=== PATIENT | male | born 1995 | race Caucasian/White ===

== ENCOUNTER 2019-04-03 19:13 | Observation (INO) ==
[2019-04-03] MEDS ORDERED: Pantoprazole 40 MG VIAL IVP ONE (19:44)
[2019-04-03] MEDS ORDERED: GI Cocktail 40 ML EACH PO ONE (19:44)
[2019-04-03] MEDS ORDERED: Ondansetron 4 MG/2 ML VIAL IVP ONE (19:44)
[2019-04-03] MEDS ORDERED: Isovue-370 500 ML BOTTLE IVP ONE (19:45)
[2019-04-03] MEDS ORDERED: Ketorolac 15 MG/ML VIAL IVP ONE (19:45)
--- NOTE | 2019-04-03 19:50 | Emergency Department Note ---
Disposition Clinical Impression: Acute appendicitis Qualifiers: Acute appendicitis type: unspecified acute appendicitis type Qualified Code(s): K35.80 - Unspecified acute appendicitis Disposition: Admitted As Inpatient Referrals: [facility] [Outside] Forms: ED Satisfaction Letter, Work/School Release Time of Disposition: 22:11 Abdominal Pain HPI - General Chief Complaint: ED Abdominal Pain Stated Complaint: Stomach Pain Time Seen by Provider: 04/03/19 19:27 Source: patient Mode of arrival: ambulatory Limitations: no limitations Nursing Notes Reviewed: Yes Vital Signs Reviewed: Yes - History of Present Illness HPI Narrative: Mr. Sequeira is a 23 yo M with no past medical history presented the emergency department with epigastric pain radiating to the RUQ and RLQ. He reports he has had intermittent pain for several months, but has had constant pain since this afternoon while he was bending down at work. Pain is worse with eating. He also has nausea and vomiting that worsens with eating. Associated chills, but no known fevers. He denies acid reflux, diarrhea, constipation, hematochezia, melena, dysuria, hematuria, or rashes. He has had 2 ED visits in the past for this pain, told that he will have constipation and gastroenteritis. He takes no medications. No prior abdominal surgeries. Pain Scale: 9 - Related Data Previous Rx's Medication Instructions Recorded Ondansetron ODT [Zofran ODT] 4 mg SL Q4HR PRN #10 tab.rapdis 09/02/18 Ranitidine Oral Soln [Zantac] 150 mg PO DAILY #15 oral.syg 09/02/18 Allergies Allergy/AdvReac Type Severity Reaction Status Date / Time No Known Allergies Allergy Verified 04/03/19 19:14 Review of Systems: Admits to chills, abdominal pain, nausea, and vomiting. Denies fevers, headache, vision changes, chest pain, dyspnea, diarrhea, constipation, hematochezia, melena, dysuria, hematuria, rashes, or edema. Abdominal Pain PMH - Past Medical History Medical history: Reports: no medical history Male Surgical History: Reports: no surgical history Psychiatric history: Reports: no psych history - Social History Smoking status: Current every day smoker Alcohol use: Reports: none Drug use: Reports: none Physical Exam GEN: No acute distress, A&O3 HEAD: Atraumatic, normocephalic EYES: Pupils symmetric, sclera white, conjunctiva pink HEART: RRR, normal S1 and S2, no murmurs LUNGS: Clear to auscultation bilaterally, no wheezes, rhonchi, or crackles ABD: Soft, mild tenderness in epigastric, RUQ, and RLQ regions, nondistended, + guarding, no rigidity or rebound EXT: No edema noted, pulses 2/4, no rashes NEURO: No focal deficits, cooperative with exam - General Limitations: no limitations General appearance: alert Course Vital Signs Temperature 97.9 F 04/03/19 19:15 Pulse Rate 76 04/03/19 19:15 Respiratory Rate 15 04/03/19 19:15 Blood Pressure 138/83 04/03/19 19:15 O2 Sat by Pulse Oximetry 98 04/03/19 19:15 Temperature 97.9 F 04/03/19 19:15 Pulse Rate 67 04/03/19 21:01 Respiratory Rate 14 04/03/19 21:01 Blood Pressure 113/75 04/03/19 21:01 O2 Sat by Pulse Oximetry 99 04/03/19 21:01 Oxygen Delivery Oxygen Delivery Room Air Abdominal Pain - MDM Narrative Medical decision making narrative: Non-toxic, afebrile, well appearing 23 yo M here with acute on chronic abdominal pain. Labs shows mild leukocytosis of 12.6. UA with microscopic RBCs. CMP and lipase unremarkable. CT abdomen and pelvis shows periappendiceal inflammation, appendicolith, and early signs of acute appendicitis. Will give patient a dose of Zosyn here in the ED. Patient symptoms are improved with Toradol and Zofran. The patient last ate around 1700. Discussed the case with the on-call surgeon, Dr. Tripathi, who recommends admission to the hospital to the surgical service and plan for surgery in the morning. - Lab Data Lab results reviewed: Yes I reviewed the patient's lab results. Result diagrams: 04/03/19 20:15 04/03/19 20:15 Lab Results 04/03/19 04/03/19 04/03/19 Range/Units 20:03 20:15 20:15 WBC 12.6 H (4.3-11.1) K/mcL RBC 5.26 (4.19-5.50) M/mcL Hgb 15.4 (12.9-16.9) g/dL Hct 44.7 (37.5-50.1) % MCV 85.0 (83.0-100.0) fL MCH 29.3 (28.0-33.3) pg MCHC 34.5 (31.6-35.5) g/dL RDW 12.4 (11.5-14.5) % Plt Count 206 (140-400) K/mcL MPV 10.0 (9.4-12.4) fL Immature Gran % 0.5 (0-4) % Seg Neutrophils % 76.0 % Lymphocytes % 17.6 % Monocytes % 5.0 % Eosinophils % 0.5 % Basophils % 0.4 % Neutrophils # 9.6 H (1.6-8.9) K/mcL Lymphocytes # 2.2 (0.6-4.6) K/mcL Monocytes # 0.6 (0.0-1.3) K/mcL Eosinophils # 0.1 (0.0-0.6) K/mcL Basophils # 0.1 (0.0-0.2) K/mcL Sodium 140 (136-145) mEq/L Potassium 3.6 (3.5-5.1) mEq/L Chloride 107 (98-107) mEq/L Carbon Dioxide 26 (23-29) mEq/L BUN 11 (6-20) mg/dL Creatinine 0.78 (0.70-1.30) mg/dL Est GFR ( Amer) > 60 (> 60) Est GFR (Non-Af Amer) > 60 (> 60) BUN/Creatinine Ratio 14 (6-26) Glucose 92 (70-105) mg/dL Calculated Osmolality 289 (280-300) Calcium 9.4 (8.6-10.3) mg/dL Total Bilirubin 0.3 (0.3-1.0) mg/dL Direct Bilirubin 0.1 (0.0-0.2) mg/dL Indirect Bilirubin 0.2 (0.0-1.2) mg/dL AST 13 (13-39) Units/L ALT 9 (7-52) Units/L Alkaline Phosphatase 61 (34-104) Units/L Serum Total Protein 7.1 (6.4-8.9) g/dL Albumin 4.8 (3.5-5.7) g/dL Globulin 2.3 L (2.4-3.5) g/dL Albumin/Globulin Ratio 2.1 (1.1-2.2) Amylase 40 (29-103) Units/L Lipase 6 L (11-82) Units/L Urine Color Yellow (Yellow) Urine Clarity Turbid A (Clear) Urine pH 8.0 (5.0-8.0) pH Units Ur Specific [place] 1.022 (1.010-1.025) Urine Protein Negative (Neg-Trace) mg/dL Urine Glucose (UA) Normal (Normal) mg/dL Urine Ketones Negative (Negative) mg/dL Urine Blood Negative (Negative) Urine Nitrite Negative (Negative) Urine Bilirubin Negative (Negative) Urine Urobilinogen Normal (Normal) mg/dL Ur Leukocyte Esterase Negative (Negative) Urine Microscopic RBC 3-5 H (0-3) per hpf Urine Microscopic WBC 0-3 (0-3) per hpf Ur Squamous Epith Cells Few (None-Few) per lpf Urine Bacteria None Seen (None-Few) per hpf Hyaline Casts None Seen (None-Few) per lpf Ur Culture Indicated? NO (NO) - Radiology Data Radiology results reviewed: Yes I reviewed the patient's radiology results. Attestation Statement - Attestation Attestation: Yury Mariee D.O., examined this patient and my medical decision-making was reviewed with the Resident Physician. I agree with the documented findings, disposition and treatment plan as described except to the extent set forth below.
[2019-04-03 20:15] LABS: Bilirubin,Urine Negative (Negative); Blood,Urine Negative (Negative); Clarity,Urine Turbid (Clear); Color,Urine Yellow (Yellow); Glucose,Urine (UA) Normal (Normal); Ketones,Urine Negative (Negative); Leukocyte Esterase,Urine Negative (Negative); Nitrite,Urine Negative (Negative); Protein,Urine Negative (Neg-Trace); Specific Gravity,Urine 1.022 (1.010-1.025); Urobilinogen,Urine Normal (Normal)
[2019-04-03 20:16] LABS: Bacteria,Urine None Seen per hpf (None-Few); Hyaline Casts,Urine None Seen per lpf (None-Few); Squamous Epithelial Cell,Urine Few per lpf (None-Few); WBC,Urine 0-3 per hpf (0-3)
[2019-04-03 20:32] LABS: Basophils # 0.1 K/mcL (0.0-0.2); Basophils % 0.4 %; Eosinophils # 0.1 K/mcL (0.0-0.6); Eosinophils % 0.5 %; Hematocrit 44.7 % (37.5-50.1); Hemoglobin 15.4 g/dL (12.9-16.9); Immature Granulocytes % 0.5 % (0-4); Lymphocytes # 2.2 K/mcL (0.6-4.6); Lymphocytes % 17.6 %; Mean Corpuscular HGB Conc 34.5 g/dL (31.6-35.5); Mean Corpuscular Hemoglobin 29.3 pg (28.0-33.3); Monocytes # 0.6 K/mcL (0.0-1.3); Neutrophils # 9.6 K/mcL (1.6-8.9); Platelet Count 206 K/mcL (140-400); Red Blood Count 5.26 M/mcL (4.19-5.50); Red Cell Distribution Width 12.4 % (11.5-14.5); White Blood Count 12.6 K/mcL (4.3-11.1)
--- NOTE | 2019-04-03 20:34 | Emergency Department Note ---
Disposition Clinical Impression: Acute appendicitis Qualifiers: Acute appendicitis type: unspecified acute appendicitis type Qualified Code(s): K35.80 - Unspecified acute appendicitis Disposition: Admitted As Inpatient Condition: Good Referrals: [facility] [Outside] Forms: ED Satisfaction Letter, Work/School Release Time of Disposition: 22:05 General Adult HPI - General Chief complaint: ED Abdominal Pain Stated complaint: Stomach Pain Time Seen by Provider: 04/03/19 19:27 Source: patient Mode of arrival: ambulatory Limitations: no limitations - History of Present Illness Pain Scale: 9 - Related Data Previous Rx's Medication Instructions Recorded Ondansetron ODT [Zofran ODT] 4 mg SL Q4HR PRN #10 tab.rapdis 09/02/18 Ranitidine Oral Soln [Zantac] 150 mg PO DAILY #15 oral.syg 09/02/18 Allergies Allergy/AdvReac Type Severity Reaction Status Date / Time No Known Allergies Allergy Verified 04/03/19 19:14 Past Medical History - Past Medical History Medical history: Reports: no medical history Psychiatric history: Reports: no psych history - Social History Smoking Status: Current every day smoker Alcohol use: Reports: none Drug use: Reports: none Physical Exam - General Limitations: no limitations General appearance: alert Course Vital Signs Temperature 97.9 F 04/03/19 19:15 Pulse Rate 76 04/03/19 19:15 Respiratory Rate 15 04/03/19 19:15 Blood Pressure 138/83 04/03/19 19:15 O2 Sat by Pulse Oximetry 98 04/03/19 19:15 Temperature 97.9 F 04/03/19 19:15 Pulse Rate 67 04/03/19 21:01 Respiratory Rate 14 04/03/19 21:01 Blood Pressure 113/75 04/03/19 21:01 O2 Sat by Pulse Oximetry 99 04/03/19 21:01 Oxygen Delivery Oxygen Delivery Room Air Medical Decision Making - Lab Data Result diagrams: 04/03/19 20:15 04/03/19 20:15 Lab Results 04/03/19 04/03/19 04/03/19 Range/Units 20:03 20:15 20:15 WBC 12.6 H (4.3-11.1) K/mcL RBC 5.26 (4.19-5.50) M/mcL Hgb 15.4 (12.9-16.9) g/dL Hct 44.7 (37.5-50.1) % MCV 85.0 (83.0-100.0) fL MCH 29.3 (28.0-33.3) pg MCHC 34.5 (31.6-35.5) g/dL RDW 12.4 (11.5-14.5) % Plt Count 206 (140-400) K/mcL MPV 10.0 (9.4-12.4) fL Immature Gran % 0.5 (0-4) % Seg Neutrophils % 76.0 % Lymphocytes % 17.6 % Monocytes % 5.0 % Eosinophils % 0.5 % Basophils % 0.4 % Neutrophils # 9.6 H (1.6-8.9) K/mcL Lymphocytes # 2.2 (0.6-4.6) K/mcL Monocytes # 0.6 (0.0-1.3) K/mcL Eosinophils # 0.1 (0.0-0.6) K/mcL Basophils # 0.1 (0.0-0.2) K/mcL Sodium 140 (136-145) mEq/L Potassium 3.6 (3.5-5.1) mEq/L Chloride 107 (98-107) mEq/L Carbon Dioxide 26 (23-29) mEq/L BUN 11 (6-20) mg/dL Creatinine 0.78 (0.70-1.30) mg/dL Est GFR ( Amer) > 60 (> 60) Est GFR (Non-Af Amer) > 60 (> 60) BUN/Creatinine Ratio 14 (6-26) Glucose 92 (70-105) mg/dL Calculated Osmolality 289 (280-300) Calcium 9.4 (8.6-10.3) mg/dL Total Bilirubin 0.3 (0.3-1.0) mg/dL Direct Bilirubin 0.1 (0.0-0.2) mg/dL Indirect Bilirubin 0.2 (0.0-1.2) mg/dL AST 13 (13-39) Units/L ALT 9 (7-52) Units/L Alkaline Phosphatase 61 (34-104) Units/L Serum Total Protein 7.1 (6.4-8.9) g/dL Albumin 4.8 (3.5-5.7) g/dL Globulin 2.3 L (2.4-3.5) g/dL Albumin/Globulin Ratio 2.1 (1.1-2.2) Amylase 40 (29-103) Units/L Lipase 6 L (11-82) Units/L Urine Color Yellow (Yellow) Urine Clarity Turbid A (Clear) Urine pH 8.0 (5.0-8.0) pH Units Ur Specific [place] 1.022 (1.010-1.025) Urine Protein Negative (Neg-Trace) mg/dL Urine Glucose (UA) Normal (Normal) mg/dL Urine Ketones Negative (Negative) mg/dL Urine Blood Negative (Negative) Urine Nitrite Negative (Negative) Urine Bilirubin Negative (Negative) Urine Urobilinogen Normal (Normal) mg/dL Ur Leukocyte Esterase Negative (Negative) Urine Microscopic RBC 3-5 H (0-3) per hpf Urine Microscopic WBC 0-3 (0-3) per hpf Ur Squamous Epith Cells Few (None-Few) per lpf Urine Bacteria None Seen (None-Few) per hpf Hyaline Casts None Seen (None-Few) per lpf Ur Culture Indicated? NO (NO) Attestation Statement - Attestation Attestation: Yury Mariee D.O., examined this patient and my medical decision-making was reviewed with the Resident Physician. I agree with the documented findings, disposition and treatment plan as described except to the extent set forth below. This is a 23-year-old male with a history of chronic abdominal pain presenting with abdominal pain. States pain began today. Points to his epigastric and right upper quadrant area. It is associated with eating usually. He has been seen numerous times for this before and says he has been told different etiologies of his pain. Reports feeling nauseated. No change in bowel habits. No prior abdominal surgical history. No other complaints. General: Alert, no acute distress HENT: Normocephalic, Atraumatic Neck: No JVD Cardiovascular: Regular rate and rhythm. No appreciable murmurs Respiratory: Lungs CTAB. No wheezing/rhonchi Abdominal: Soft, mild tenderness in the epigastric, right upper quadrant and right lower quadrant. No peritoneal features. Extremities: No peripheral edema Neuro: Alert, Mentating appropriately, No focal deficits Skin: Warm, Dry Plan: CT, labs, disposition pending. CT with evidence of acute appendicitis with appendicolith without abscess or perforation. He does have a leukocytosis of 12.6 with a left shift. Patient was given Zosyn. Case discussed with the on-call general surgeon, Dr. Tripathi who accepts the patient to his service.
[2019-04-03 20:55] LABS: Alanine Aminotransferase 9 Units/L (7-52); Albumin 4.8 g/dL (3.5-5.7); Albumin/Globulin Ratio 2.1 (1.1-2.2); Alkaline Phosphatase 61 Units/L (34-104); Amylase 40 Units/L (29-103); Aspartate Amino Transferase 13 Units/L (13-39); BUN/Creatinine Ratio 14 (6-26); Bilirubin,Direct 0.1 mg/dL (0.0-0.2); Bilirubin,Indirect 0.2 mg/dL (0.0-1.2); Bilirubin,Total 0.3 mg/dL (0.3-1.0); Blood Urea Nitrogen 11 mg/dL (6-20); Calcium 9.4 mg/dL (8.6-10.3); Carbon Dioxide 26 mEq/L (23-29); Chloride 107 mEq/L (98-107); Globulin 2.3 g/dL (2.4-3.5); Glucose 92 mg/dL (70-105); Lipase 6 Units/L (11-82); Osmolality,Calculated 289 (280-300); Potassium 3.6 mEq/L (3.5-5.1); Sodium 140 mEq/L (136-145); Total Protein 7.1 g/dL (6.4-8.9); eGFR For African Americans > 60 (> 60); eGFR For Non-African Americans > 60 (> 60)
[2019-04-03] MEDS ORDERED: Piperacillin/Tazobactam 3.375 GM in Water for inj. (sterile) 20 ML IVP ONE (22:01)
[2019-04-03] MEDS ORDERED: 0.9 % Sodium Chloride 1,000 ML IVC ONE (22:02)
[2019-04-04] MEDS: cefOXitin 2,000 MG in 0.9 % Sodium Chloride Mini Bag 100 ML IVPB SCH ×2 (00:15→07:51)
--- NOTE | 2019-04-04 00:24 | Acute Care Surgery H&P ---
Date of Encounter: 04/04/19 Time of Encounter: 00:05 Assessment and Plan (1) Acute appendicitis Current Visit: Yes Status: Acute The assessment and plan as outlined above was discussed with the patient and/or family members who expressed understanding and agreement. All questions were answered. We will plan on initial IV antibiotic therapy and IV hydration. He will be kept nothing by mouth. We will plan laparoscopic appendectomy tomorrow. Qualifiers: Acute appendicitis type: with localized peritonitis Appendicitis gangrene presence: unspecified whether gangrene present Appendicitis perforation presence: unspecified whether perforation present Appendicitis abscess presence: unspecified whether abscess present Qualified Code(s): K35.30 - Acute appendicitis with localized peritonitis, without perforation or gangrene History of Present Illness Chief complaint: Abdominal pain HPI: Mr. Sequeira is a 23 year old male That developed abdominal pain about 2:00 this afternoon. The pain was initially central and generalized. Throughout the day the pain became lower in the abdomen. The pain is predominantly right mid abdomen without localization of the right lower quadrant. He denies shakes chills or fever. He denies nausea or vomiting. He sought evaluation in the emergency department. CAT scan demonstrated early acute appendicitis. He does have leukocytosis. He now presents for treatment of early acute appendicitis. Unfortunately, the patient ate dinner at 5:00 this evening. We will keep him nothing by mouth after midnight and plan on performing his appendectomy tomorrow. Past Med Surg Social Fam HX - Past Medical History Medical history: no medical history Psychiatric history: no psych history - Social History Smoking Status: Current every day smoker Alcohol use: none Drug use: none - Family History Maternal Grandfather Living Status: Still Living Hx Family Cancer: Yes Medications and Allergies No Known Home Drugs 04/03/19 [History] Allergy/AdvReac Type Severity Reaction Status Date / Time No Known Allergies Allergy Verified 04/03/19 19:14 Review of Systems All systems PM: The remainder of the systems were reviewed and are negative General Surgery Exam Initial Vital Signs Temp Pulse Resp BP Pulse Ox 97.9 F 76 15 138/83 98 04/03/19 19:15 04/03/19 19:15 04/03/19 19:15 04/03/19 19:15 04/03/19 19:15 - General physical appearance well developed, well nourished, moderate pain - Respiratory normal expansion, normal respiratory effort, clear to percussion, clear to auscultation - Cardiovascular Cardiovascular exam: Present: RRR, no murmurs/rubs/gallops - Abdomen Abdominal Tenderness: Present: RLQ (And right mid abdomen pain to deep palpation no guarding no rebound) - Integumentary Integumentary general surgery: Present: warm and dry, no abnormal pigmentation - Neurologic Present: CN 2-12 grossly intact, normal coordination, normal sensation - Psychiatric Psychiatric general surgery: Present: appropriate, oriented to person, oriented to place, oriented to time, speech is normal, memory intact Results - Labs 04/03/19 20:15 04/03/19 20:15 Abnormal lab results WBC 12.6 K/mcL (4.3-11.1) H 04/03/19 20:15 Neutrophils # 9.6 K/mcL (1.6-8.9) H 04/03/19 20:15 Globulin 2.3 g/dL (2.4-3.5) L 04/03/19 20:15 Lipase 6 Units/L (11-82) L 04/03/19 20:15 Urine Clarity Turbid (Clear) A 04/03/19 20:03 Urine Microscopic RBC 3-5 per hpf (0-3) H 04/03/19 20:03 Diabetes panel 04/03/19 Range/Units 20:15 Sodium 140 (136-145) mEq/L Potassium 3.6 (3.5-5.1) mEq/L Chloride 107 (98-107) mEq/L Carbon Dioxide 26 (23-29) mEq/L BUN 11 (6-20) mg/dL Creatinine 0.78 (0.70-1.30) mg/dL Glucose 92 (70-105) mg/dL Calcium 9.4 (8.6-10.3) mg/dL AST 13 (13-39) Units/L ALT 9 (7-52) Units/L Alkaline Phosphatase 61 (34-104) Units/L Albumin 4.8 (3.5-5.7) g/dL Calcium panel 04/03/19 Range/Units 20:15 Calcium 9.4 (8.6-10.3) mg/dL Albumin 4.8 (3.5-5.7) g/dL Pituitary panel 04/03/19 Range/Units 20:15 Sodium 140 (136-145) mEq/L Potassium 3.6 (3.5-5.1) mEq/L Chloride 107 (98-107) mEq/L Carbon Dioxide 26 (23-29) mEq/L BUN 11 (6-20) mg/dL Creatinine 0.78 (0.70-1.30) mg/dL Glucose 92 (70-105) mg/dL Calcium 9.4 (8.6-10.3) mg/dL Adrenal panel 04/03/19 Range/Units 20:15 Sodium 140 (136-145) mEq/L Potassium 3.6 (3.5-5.1) mEq/L Chloride 107 (98-107) mEq/L Carbon Dioxide 26 (23-29) mEq/L BUN 11 (6-20) mg/dL Creatinine 0.78 (0.70-1.30) mg/dL Glucose 92 (70-105) mg/dL Calcium 9.4 (8.6-10.3) mg/dL Total Bilirubin 0.3 (0.3-1.0) mg/dL AST 13 (13-39) Units/L ALT 9 (7-52) Units/L Alkaline Phosphatase 61 (34-104) Units/L Albumin 4.8 (3.5-5.7) g/dL All other labs normal. - Imaging CT scan - abdomen: image reviewed (I personally reviewed the CAT scan of the abdomen. Findings are consistent with early acute appendicitis)
--- NOTE | 2019-04-04 09:58 | Anesthesia Evaluation PreOp ---
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 HX Other Medical History: Denies Any Significant HX Anesthesia History: Past Anesthesia (denies PSH) Alcohol Use: none Drug use: none Medications and Allergies No Known Home Drugs 04/03/19 [History] Allergy/AdvReac Type Severity Reaction Status Date / Time No Known Allergies Allergy Verified 04/03/19 19:14 - Meds/Allergy Pre-op Review Medications Reviewed: Yes Allergies Reviewed: Yes Beta Blockers on Current Med List: No Anesthesia Results - Labs 04/03/19 20:15 04/03/19 20:15 Anesthesia Exam Selected Entries 04/04/19 05:06 Temperature 97.7 F Pulse Rate 62 Respiratory Rate 15 Blood Pressure 104/57 O2 Sat by Pulse Oximetry 97 Weight: 59kg NPO (# of Hours): 8 - HEENT Pupil (Motor): EOMI Mallampati: II Teeth: Normal Oral Opening: Greater than 3 - FLIGHT OPERATIONS MANAGER LOC: Oriented FLIGHT OPERATIONS MANAGER Motor: Normal RUE, Normal LUE, Normal RLE, Normal LLE, Normal Face FLIGHT OPERATIONS MANAGER Sensory: Normal: RUE, LUE, RLE, LLE, Face - Cardiac Rhythm: Regular Murmur: None - Pulmonary Breath Sounds: bilateral Clear Respiratory Effort: Symmetrical Anesthesia Assess/Plan ASA Score: 2 Level of consciousness: Cooperative, Oriented Anesthetic Plan: General Monitoring Plan: Standard Monitors Recovery Plan: PACU (agrees to GA)
[2019-04-04] MEDS ORDERED: *HR* HYDROmorphone (PF) 1 MG/ML SYRINGE IVP PRN (10:46)
[2019-04-04] MEDS ORDERED: *HR* Promethazine 25 MG/ML VIAL IVP PRN (10:46)
[2019-04-04] MEDS ORDERED: *HR* OxyCODONE Immed Rel 5 MG TABLET PO PRN (10:46)
[2019-04-04] MEDS ORDERED: traMADol 50 MG TABLET PO PRN (10:46)
[2019-04-04] MEDS ORDERED: Ringers Solution, Lactated 1,000 ML IVC SCH (11:00)
[2019-04-04] MEDS ORDERED: Ketorolac 30 MG/ML VIAL ONE (11:19)
[2019-04-04] MEDS ORDERED: Lidocaine -MPF 2% 2 ML VIAL ONE (11:19)
[2019-04-04] MEDS ORDERED: Neostigmine Methylsulfate 3 MG/3 ML SYRINGE ONE (11:19)
[2019-04-04] MEDS ORDERED: *HR* Rocuronium Bromide 50 MG/5 ML VIAL ONE (11:19)
[2019-04-04] MEDS ORDERED: Ondansetron 4 MG/2 ML VIAL ONE (11:19)
[2019-04-04] MEDS ORDERED: *HR* Midazolam HCl 2 MG/2 ML VIAL ONE (11:20)
[2019-04-04] MEDS ORDERED: *HR* Propofol 200 MG/20 ML VIAL IVP ONE (11:20)
[2019-04-04] MEDS ORDERED: *HR* FentaNYL (PF) 100 MCG/2 ML VIAL ONE (11:20)
[2019-04-04] MEDS ORDERED: Bupivacaine/EPI 1:200k 0.25%PF 30 ML VIAL ONE (11:22)
[2019-04-04] MEDS ORDERED: Lidocaine HCL 4 ML Topical Solution (Laryng-O-Jet Kit Sterile Pak) TP ONE (11:22)
[2019-04-04] MEDS ORDERED: Bupivacaine/EPI 1:200k 0.5%PF 30 ML VIAL ONE ×2 (11:42→11:53)
[2019-04-04] MEDS ORDERED: *HR* HYDROMORPHONE 2 MG/ML VIAL ONE (12:43)
--- NOTE | 2019-04-04 12:55 | Operative Note ---
Date of procedure: 04/04/19 Pre-op diagnosis: Acute appendicitis Post-op diagnosis: same Procedure: Laparoscopic appendectomy Anesthesia: GETA Surgeon: Vitor Harris Was there an catering administrative assistant present: No Estimated blood loss (cc): 8 Specimen: appendix Condition: stable Disposition: PACU Procedure in Detail: Date of surgery: 04/04/19 After properly identifying the patient, the patient was brought to the operating room and placed in the supine position. After proper IV sedation was achieved followed by general endotracheal intubation, the patient's abdomen was prepped and draped in a normal sterile fashion. A timeout was performed noting the patient's name and type of procedure to be performed. Half percent Marcaine with epinephrine was used to infiltrate the epidermal, dermal, and subcutaneous tissue just inferior to the umbilicus. An 11 blade scalpel was used to make an incision in this area down to the rectus fascia which was also incised. Once the abdomen was entered a 12 mm port was placed through the incision and the abdomen was insufflated with carbon dioxide. A laparoscopic camera was placed through the port which showed no injury to the intra-abdominal organs upon entry. A suprapubic 5 mm port and a left lower quadrant 5 mm port were then placed under direct camera visualization after both these areas were first infiltrated with half percent Marcaine. The patient was placed in a Trendelenburg position left side down and the right lower quadrant was examined. The appendix was identified and retracted superiorly. There was some mild thickening along the mid to distal aspect of the appendix consistent with appendicitis. The base of the appendix was dissected away from the mesentery with a [place] dissector. A laparoscopic ZOHRA stapler was then used to transect across the base of the appendix and the mesentery. The appendix was then removed from the abdomen via an Endobag. Reinspection of the staple line inserted some mild oozing which was hemostatically controlled with Bovie cauterization. The right lower quadrant and pelvis were then irrigated with normal saline solution and reevaluation of the staple lines demonstrated maintenance of hemostasis. All ports were then removed from the abdomen after the abdomen was desufflated. The rectus fascia for the subumbilical incision was reapproximated with a [id number] Vicryl suture. The subcutaneous tissue was reapproximated with 3-0 Vicryl suture and the epidermal and dermal layers for the remaining incisions were closed with 4-0 Monocryl sutures. Needle, sponge, and instrument counts were correct 2 and the incisions were covered with Steri-Strips and Band-Aids. The patient was aroused from IV sedation, extubated in the operating room without complication, and transported to the recovery room in stable condition.
--- NOTE | 2019-04-04 12:59 | Discharge Summary ---
Orders not resulted at time of discharge: Pending orders 04/04/19 12:45 Surgical Pathology [PTH] Routine Date of Encounter: 04/04/19 Time of Encounter: 12:58 General Surgery Exam Initial Vital Signs Temp Pulse Resp BP Pulse Ox 97.9 F 76 15 138/83 98 04/03/19 19:15 04/03/19 19:15 04/03/19 19:15 04/03/19 19:15 04/03/19 19:15 - Hospital Course Hospital course: Mr. Sequeira is a 23 year old male who presented to the emergency room symptoms of periumbilical and right-sided abdominal pain. CT scan showed evidence of acute appendicitis and on 04/04/2019 he was brought to the operating room after being started on IV antibiotics for laparoscopic appendectomy. He tolerated the procedure well and was able to tolerate a regular medial on the same day subsequently discharged home later that evening with follow-up with general surgery in 2 weeks. Time spent discussing smoking cessation with patient: 3 to 10 minutes - Time Spent with Patient Total time spent providing and/or coordinating discharge services: Less than 30 minutes - Discharge Medications Prescriptions: New OxyCODONE/APAP 5/325 [Percocet 5/325 MG] 1 each PO Q6HR PRN 7 Days #28 tablet PRN Reason: Pain Amoxicillin/Clavulanate [Augmentin] 875 mg PO BIDWM 3 Days #6 tablet Home Medications: Amoxicillin/Clavulanate [Augmentin] 875 mg PO BIDWM 3 Days #6 tablet 04/04/19 [Rx] OxyCODONE/APAP 5/325 [Percocet 5/325 MG] 1 each PO Q6HR PRN 7 Days #28 tablet 04/04/19 [Rx] Allergies/Adverse Reactions: Allergy/AdvReac Type Severity Reaction Status Date / Time No Known Allergies Allergy Verified 04/03/19 19:14 Date of admission: 04/03/19 22:17 Primary care physician: PCP NONE Consults: 04/03/19 22:07 Consult to Surgery [CONS] Stat Consulting Provider: Acute Care Surgery Reason for Consult: appendicitis Time Notified: 22:08 Call Completed: Yes Discharging clinician: Vitor Harris Labs on day of discharge: Labs from last 24 hours 04/04/19 04/03/19 04/03/19 05:40 20:15 20:15 WBC 12.6 H RBC 5.26 Hgb 15.4 Hct 44.7 MCV 85.0 MCH 29.3 MCHC 34.5 RDW 12.4 Plt Count 206 MPV 10.0 Immature Gran % 0.5 Seg Neutrophils % 76.0 Lymphocytes % 17.6 Monocytes % 5.0 Eosinophils % 0.5 Basophils % 0.4 Neutrophils # 9.6 H Lymphocytes # 2.2 Monocytes # 0.6 Eosinophils # 0.1 Basophils # 0.1 Sodium 140 Potassium 3.6 Chloride 107 Carbon Dioxide 26 BUN 11 Creatinine 0.78 Est GFR ( Amer) > 60 Est GFR (Non-Af Amer) > 60 BUN/Creatinine Ratio 14 Glucose 92 POC Glucose 101 H Calculated Osmolality 289 Calcium 9.4 Total Bilirubin 0.3 Direct Bilirubin 0.1 Indirect Bilirubin 0.2 AST 13 ALT 9 Alkaline Phosphatase 61 Serum Total Protein 7.1 Albumin 4.8 Globulin 2.3 L Albumin/Globulin Ratio 2.1 Amylase 40 Lipase 6 L Urine Color Urine Clarity Urine pH Ur Specific [place] Urine Protein Urine Glucose (UA) Urine Ketones Urine Blood Urine Nitrite Urine Bilirubin Urine Urobilinogen Ur Leukocyte Esterase Urine Microscopic RBC Urine Microscopic WBC Ur Squamous Epith Cells Urine Bacteria Hyaline Casts Ur Culture Indicated? 04/03/19 20:03 WBC RBC Hgb Hct MCV MCH MCHC RDW Plt Count MPV Immature Gran % Seg Neutrophils % Lymphocytes % Monocytes % Eosinophils % Basophils % Neutrophils # Lymphocytes # Monocytes # Eosinophils # Basophils # Sodium Potassium Chloride Carbon Dioxide BUN Creatinine Est GFR ( Amer) Est GFR (Non-Af Amer) BUN/Creatinine Ratio Glucose POC Glucose Calculated Osmolality Calcium Total Bilirubin Direct Bilirubin Indirect Bilirubin AST ALT Alkaline Phosphatase Serum Total Protein Albumin Globulin Albumin/Globulin Ratio Amylase Lipase Urine Color Yellow Urine Clarity Turbid A Urine pH 8.0 Ur Specific [place] 1.022 Urine Protein Negative Urine Glucose (UA) Normal Urine Ketones Negative Urine Blood Negative Urine Nitrite Negative Urine Bilirubin Negative Urine Urobilinogen Normal Ur Leukocyte Esterase Negative Urine Microscopic RBC 3-5 H Urine Microscopic WBC 0-3 Ur Squamous Epith Cells Few Urine Bacteria None Seen Hyaline Casts None Seen Ur Culture Indicated? NO - Impressions ITS Impressions Abdomen/Pelvis CT 04/03/19 19:45 IMPRESSION: Findings most compatible with early acute appendicitis. No evidence of perforation or abscess formation. D/ / Diogenes Dawson MD / Diogenes Dawson MD Interpreting Provider: Diogenes Dawson MD - Patient Status Disposition: Home, Self-Care Condition: Good Overall status at discharge: patient is back to baseline - Discharge Instructions Instructions: Appendicitis (DC), Laparoscopic Appendectomy (DC) Follow Up With: Philip Luong [Partnered Physician] - 04/17/19 9:20 am NONE,PCP [Primary Care Provider] - Forms: Inpatient Work/School Release Additional Instructions: No heavy lifting greater than 20 lbs for two weeks. May remove Band-Aids in two days. May shower in two days.
[2019-04-04] MEDS ORDERED: Dexamethasone 4 MG/ML VIAL ONE (13:23)
--- NOTE | 2019-04-04 13:45 | Anesthesia Evaluation Post Op ---
Date of Encounter: 04/04/19 Time of Encounter: 13:44 - Vital Signs Vital Signs: Selected Entries 04/04/19 13:05 04/04/19 13:25 Temperature 97.8 F Pulse Rate 64 Respiratory Rate 16 Blood Pressure 117/57 O2 Sat by Pulse Oximetry 94 - Lungs Lungs: Clear Ascult./Percussion - Airway Airway: Non-obstructed - Cardiovascular Regular Rate - Mental Status Mental Status: Alert & Oriented, Answers Appropriately - Pain Pain Scale: 2 Pain Scale used: Numeric (1 - 10) - Nausea Vomiting Nausea Vomiting: Not Present - Hydration Hydration: Ice chips, Has not voided - Discharge PostOp Status: Transfer Patient to floor
[2019-04-04] MEDS ORDERED: 0.9 % Sodium Chloride 1,000 ML IVC SCH ×2 (13:52)
[2019-04-04] MEDS ORDERED: *HR* OxyCODONE/APAP 5/325 TABLET PO PRN (13:52)
[2019-04-04] MEDS ORDERED: Ondansetron 4 MG/2 ML VIAL IVP PRN ×2 (13:52)
[2019-04-04] MEDS ORDERED: cefOXitin 2,000 MG in Water for inj. (sterile) 20 ML IVP SCH (16:00)
[2019-04-04 17:04] VITALS: BP 106/63
== END 2019-04-04 17:19 | disposition home or self-care (01) ==
LOC: 3ANU 19:13 → EMEROOARM 19:13 → 3ANU 22:44
PROVIDERS: ADMIT Surgery; ATTEND Surgery